=== PATIENT | female | born 1940 | race Caucasian/White ===

== ENCOUNTER 2017-10-13 23:23 | Inpatient (IN) | payer OTHER ==
[~2017-10-13] VITALS: Ht 152.4 cm; Wt 45.8 kg
[~2017-10-13 23:23] MED LIST: ALBUTEROL2.5 MG/3 M IH; AMOX1TAB12 PO; B Complex CAPSULE PO; DICLOFENAC SODI50 MG PO; FUROSEMIDE20 MG PO; ISOSORBIDE MONO30 MG PO; Intestinex CAP PO; JANUVIA25 MG; JANUVIA25 MG PO; LASIX40 MG; Neurin-Sl Tablet Sl SL; PANTOPRAZOLE SO40 MG PO; PEPCID20 MG; SLOW-MAG64 M1 PO; TOPROL XL25 M1 PO
[2017-10-19] MEDS ORDERED: XARELTO15 MG PO (12:07)
[2017-10-19] MEDS ORDERED: PANTOPRAZOLE SO40 MG PO (12:22)
[2017-10-19] MEDS ORDERED: TOPROL XL25 M1 PO (12:22)
[2017-10-19] MEDS ORDERED: ISOSORBIDE MONO30 MG PO (12:22)
[2017-10-19] MEDS ORDERED: Neurin-Sl Tablet Sl SL (12:22)
[2017-10-19] MEDS ORDERED: FUROSEMIDE20 MG PO (12:22)
[2017-10-19] MEDS ORDERED: B Complex CAPSULE PO (12:22)
[2017-10-19] MEDS ORDERED: JANUVIA25 MG PO (12:22)
[2017-10-19] MEDS ORDERED: ALBUTEROL2.5 MG/3 M IH (12:22)
== END 2017-10-19 13:29 | disposition home or self-care (01) | DRG 292 ==
LOC: ER 23:23 → ICU-2 10-14 20:16 → ICU 10-14 20:16 → MEDI 10-17 15:13
PROC: 3E0F7GC Introduction of Other Therapeutic Substance into Respiratory Tract, Via Natural or Artificial Opening (ICD-10-PCS; principal; 2017-10-14)
PROC: B246ZZZ Ultrasonography of Right and Left Heart (ICD-10-PCS; 2017-10-14)
PROC: 4A12X4Z Monitoring of Cardiac Electrical Activity, External Approach (ICD-10-PCS; 2017-10-17)
PROC: B54MZZZ Ultrasonography of Right Upper Extremity Veins (ICD-10-PCS; 2017-10-18)
DX: I11.0 Hypertensive heart disease with heart failure (principal); J90 Pleural effusion, not elsewhere classified; I47.2 Ventricular tachycardia; C92.41 Acute promyelocytic leukemia, in remission; I82.B11 Acute embolism and thrombosis of right subclavian vein; N39.0 Urinary tract infection, site not specified; I50.23 Acute on chronic systolic (congestive) heart failure; R60.1 Generalized edema; B18.2 Chronic viral hepatitis C; E11.9 Type 2 diabetes mellitus without complications; J45.998 Other asthma; I42.0 Dilated cardiomyopathy; E02 Subclinical iodine-deficiency hypothyroidism; D63.8 Anemia in other chronic diseases classified elsewhere; M81.0 Age-related osteoporosis without current pathological fracture; B95.2 Enterococcus as the cause of diseases classified elsewhere; I34.0 Nonrheumatic mitral (valve) insufficiency

== ENCOUNTER 2017-10-25 07:11 | Outpatient (CLI) | payer OTHER ==
[~2017-10-25 07:11] MED LIST changes: +XARELTO15 MG PO
== END 2017-10-25 07:15 | disposition home or self-care (01) ==
LOC: LAB 07:11
DX: E11.9 Type 2 diabetes mellitus without complications (principal); I10 Essential (primary) hypertension; E03.8 Other specified hypothyroidism; E78.2 Mixed hyperlipidemia

== ENCOUNTER 2018-01-02 07:48 | Outpatient (CLI) | payer OTHER | END 2018-01-02 08:08 | disposition home or self-care (01) | LOC: LAB 07:48 | DX: K76.89 Other specified diseases of liver (principal) ==

== ENCOUNTER 2018-01-02 07:59 | Outpatient (CLI) | payer OTHER | END 2018-01-02 08:07 | disposition home or self-care (01) | LOC: RAD 07:59 | DX: S69.92XA Unspecified injury of left wrist, hand and finger(s), initial encounter (principal) ==

== ENCOUNTER 2018-01-03 07:58 | Outpatient (CLI) | payer OTHER | END 2018-01-03 08:09 | disposition home or self-care (01) | LOC: NUCLEAR 07:58 | DX: R60.0 Localized edema (principal); I86.8 Varicose veins of other specified sites ==

== ENCOUNTER 2018-02-18 07:01 | Inpatient (IN) | payer OTHER ==
[~2018-02-18] VITALS: Ht 152.4 cm; Wt 45.4 kg
[2018-02-18] MEDS ORDERED: XARELTO20 MG (07:33)
[2018-02-18] MEDS ORDERED: CARVEDILOL3.125 MG (07:34)
[2018-02-18] MEDS ORDERED: LEVOTHYROXINE25 MCG (07:34)
== END 2018-02-28 08:16 | disposition home or self-care (01) | DRG 292 ==
LOC: ER 07:01 → SEC-K 17:15 → MEDJ 17:15
PROC: 4A033R1 Measurement of Arterial Saturation, Peripheral, Percutaneous Approach (ICD-10-PCS; 2018-02-18)
PROC: 3E0F7GC Introduction of Other Therapeutic Substance into Respiratory Tract, Via Natural or Artificial Opening (ICD-10-PCS; 2018-02-18)
PROC: B54MZZZ Ultrasonography of Right Upper Extremity Veins (ICD-10-PCS; 2018-02-18)
PROC: BW24ZZZ Computerized Tomography (CT Scan) of Chest and Abdomen (ICD-10-PCS; 2018-02-20)
PROC: 0W9G3ZX Drainage of Peritoneal Cavity, Percutaneous Approach, Diagnostic (ICD-10-PCS; principal; 2018-02-25)
PROC: BW40ZZZ Ultrasonography of Abdomen (ICD-10-PCS; 2018-02-25)
DX: I11.0 Hypertensive heart disease with heart failure (principal); J90 Pleural effusion, not elsewhere classified; C92.41 Acute promyelocytic leukemia, in remission; R18.8 Other ascites; B37.0 Candidal stomatitis; J45.41 Moderate persistent asthma with (acute) exacerbation; J98.11 Atelectasis; I50.23 Acute on chronic systolic (congestive) heart failure; B18.2 Chronic viral hepatitis C; K74.69 Other cirrhosis of liver; E02 Subclinical iodine-deficiency hypothyroidism; M81.0 Age-related osteoporosis without current pathological fracture; E11.65 Type 2 diabetes mellitus with hyperglycemia; D69.59 Other secondary thrombocytopenia; K80.80 Other cholelithiasis without obstruction

== ENCOUNTER 2018-06-11 07:39 | Outpatient (CLI) | payer OTHER ==
[~2018-06-11 07:39] MED LIST changes: +CARVEDILOL3.125 MG; +LEVOTHYROXINE25 MCG; +XARELTO20 MG
== END 2018-06-11 08:59 | disposition home or self-care (01) ==
LOC: LAB 07:39
DX: E11.9 Type 2 diabetes mellitus without complications (principal); I42.2 Other hypertrophic cardiomyopathy; I10 Essential (primary) hypertension

== ENCOUNTER 2018-06-11 09:19 | Outpatient (CLI) | payer OTHER | END 2018-06-11 09:46 | disposition home or self-care (01) | LOC: RAD 09:19 | DX: M25.512 Pain in left shoulder (principal) ==

== ENCOUNTER 2018-06-26 08:19 | Outpatient (CLI) | payer OTHER | END 2018-06-26 08:20 | disposition home or self-care (01) | LOC: LAB 08:19 | DX: E11.29 Type 2 diabetes mellitus with other diabetic kidney complication (principal); R80.8 Other proteinuria; N18.2 Chronic kidney disease, stage 2 (mild); E78.2 Mixed hyperlipidemia; E03.8 Other specified hypothyroidism; I10 Essential (primary) hypertension ==

== ENCOUNTER 2018-07-03 09:01 | Outpatient (CLI) | payer OTHER | END 2018-07-03 09:02 | disposition home or self-care (01) | LOC: SONOGRAMA 09:01 | DX: M75.52 Bursitis of left shoulder (principal) ==

== ENCOUNTER 2018-08-09 14:06 | Inpatient (IN) | payer OTHER ==
[~2018-08-09] VITALS: Ht 154.9 cm; Wt 37.6 kg
[2018-08-09] MEDS ORDERED: GRALISE600 MG (14:25)
[2018-08-09] MEDS ORDERED: SYNTHROID50 MCG (14:26)
== END 2018-08-24 18:00 | DRG 292 ==
LOC: ER 14:06 → SEC-K 18:47 → MEDI 18:47
PROC: 4A033R1 Measurement of Arterial Saturation, Peripheral, Percutaneous Approach (ICD-10-PCS; 2018-08-09)
PROC: 3E0F7GC Introduction of Other Therapeutic Substance into Respiratory Tract, Via Natural or Artificial Opening (ICD-10-PCS; 2018-08-09)
PROC: 4A12X4Z Monitoring of Cardiac Electrical Activity, External Approach (ICD-10-PCS; 2018-08-09)
PROC: 05H333Z Insertion of Infusion Device into Right Innominate Vein, Percutaneous Approach (ICD-10-PCS; 2018-08-12)
PROC: B54MZZZ Ultrasonography of Right Upper Extremity Veins (ICD-10-PCS; 2018-08-16)
PROC: 06HM33Z Insertion of Infusion Device into Right Femoral Vein, Percutaneous Approach (ICD-10-PCS; principal; 2018-08-17)
DX: I11.0 Hypertensive heart disease with heart failure (principal); C92.41 Acute promyelocytic leukemia, in remission; D62 Acute posthemorrhagic anemia; T81.41XA Infection following a procedure, superficial incisional surgical site, initial encounter; B37.0 Candidal stomatitis; J91.8 Pleural effusion in other conditions classified elsewhere; I82.621 Acute embolism and thrombosis of deep veins of right upper extremity; I82.A11 Acute embolism and thrombosis of right axillary vein; I82.B11 Acute embolism and thrombosis of right subclavian vein; L03.116 Cellulitis of left lower limb; I50.23 Acute on chronic systolic (congestive) heart failure; E03.8 Other specified hypothyroidism; B18.2 Chronic viral hepatitis C; E11.9 Type 2 diabetes mellitus without complications; J45.998 Other asthma; M81.0 Age-related osteoporosis without current pathological fracture; I42.0 Dilated cardiomyopathy; L89.152 Pressure ulcer of sacral region, stage 2; K74.69 Other cirrhosis of liver; Z95.810 Presence of automatic (implantable) cardiac defibrillator; B96.5 Pseudomonas (aeruginosa) (mallei) (pseudomallei) as the cause of diseases classified elsewhere; B95.2 Enterococcus as the cause of diseases classified elsewhere; E87.6 Hypokalemia

== ENCOUNTER 2018-08-31 12:57 | Inpatient (IN) | payer OTHER ==
[~2018-08-31] VITALS: Ht 152.4 cm; Wt 54.4 kg
[~2018-08-31 12:57] MED LIST changes: +GRALISE600 MG; +SYNTHROID50 MCG
== END 2018-09-06 11:43 | disposition home or self-care (01) | DRG 202 ==
LOC: ER 12:57 → SEC-K 21:39 → MEDJ 21:39
PROC: 3E0F7GC Introduction of Other Therapeutic Substance into Respiratory Tract, Via Natural or Artificial Opening (ICD-10-PCS; principal; 2018-08-31)
PROC: 4A12X4Z Monitoring of Cardiac Electrical Activity, External Approach (ICD-10-PCS; 2018-09-01)
DX: J45.41 Moderate persistent asthma with (acute) exacerbation (principal); I50.21 Acute systolic (congestive) heart failure; J90 Pleural effusion, not elsewhere classified; C91 Lymphoid leukemia; R18.8 Other ascites; I82.A21 Chronic embolism and thrombosis of right axillary vein; E11.9 Type 2 diabetes mellitus without complications; D64.89 Other specified anemias; K74.69 Other cirrhosis of liver; Z96.642 Presence of left artificial hip joint; Z95.810 Presence of automatic (implantable) cardiac defibrillator

== ENCOUNTER 2018-09-08 13:08 | Inpatient (IN) | payer OTHER ==
[~2018-09-08] VITALS: Ht 149.9 cm; Wt 37.6 kg
== END 2018-09-29 11:20 | disposition home or self-care (01) | DRG 371 ==
LOC: ER 13:08 → MEDJ 20:50 → MEDI 09-10 09:59 → MEDJ 09-11 11:49
PROC: 3E0F7GC Introduction of Other Therapeutic Substance into Respiratory Tract, Via Natural or Artificial Opening (ICD-10-PCS; principal; 2018-09-08)
PROC: 0W9G3ZX Drainage of Peritoneal Cavity, Percutaneous Approach, Diagnostic (ICD-10-PCS; 2018-09-12)
PROC: 06HM33Z Insertion of Infusion Device into Right Femoral Vein, Percutaneous Approach (ICD-10-PCS; 2018-09-16)
PROC: 30233R1 Transfusion of Nonautologous Platelets into Peripheral Vein, Percutaneous Approach (ICD-10-PCS; 2018-09-17)
DX: A04.71 Enterocolitis due to Clostridium difficile, recurrent (principal); I50.23 Acute on chronic systolic (congestive) heart failure; C92.41 Acute promyelocytic leukemia, in remission; J90 Pleural effusion, not elsewhere classified; I82.B11 Acute embolism and thrombosis of right subclavian vein; I82.621 Acute embolism and thrombosis of deep veins of right upper extremity; I82.A11 Acute embolism and thrombosis of right axillary vein; J45.51 Severe persistent asthma with (acute) exacerbation; B37.0 Candidal stomatitis; R18.8 Other ascites; K74.69 Other cirrhosis of liver; E11.9 Type 2 diabetes mellitus without complications; M81.8 Other osteoporosis without current pathological fracture; E03.8 Other specified hypothyroidism; D69.49 Other primary thrombocytopenia; I11.0 Hypertensive heart disease with heart failure

== ENCOUNTER 2018-10-27 22:26 | Inpatient (IN) | payer OTHER ==
[~2018-10-27] VITALS: Ht 152.4 cm; Wt 37.2 kg
[2018-10-27] MEDS ORDERED: SYNTHROID75 MCG PO (22:31)
[2018-11-03] MEDS ORDERED: SPIRONOLACTONE50 MG PO (12:16)
== END 2018-11-04 13:03 | disposition home or self-care (01) | DRG 292 ==
LOC: ER 22:26 → MEDJ 10-28 09:56
PROVIDERS: ADMIT Internal Medicine
PROC: BW24ZZZ Computerized Tomography (CT Scan) of Chest and Abdomen (ICD-10-PCS; principal; 2018-10-28)
PROC: 4A033R1 Measurement of Arterial Saturation, Peripheral, Percutaneous Approach (ICD-10-PCS; 2018-10-28)
PROC: 3E0F7GC Introduction of Other Therapeutic Substance into Respiratory Tract, Via Natural or Artificial Opening (ICD-10-PCS; 2018-10-28)
PROC: 0T9B70Z Drainage of Bladder with Drainage Device, Via Natural or Artificial Opening (ICD-10-PCS; 2018-10-28)
PROC: 0W9G30Z Drainage of Peritoneal Cavity with Drainage Device, Percutaneous Approach (ICD-10-PCS; 2018-11-01)
DX: I11.0 Hypertensive heart disease with heart failure (principal); I82.621 Acute embolism and thrombosis of deep veins of right upper extremity; I82.A11 Acute embolism and thrombosis of right axillary vein; B37.0 Candidal stomatitis; C92.41 Acute promyelocytic leukemia, in remission; R18.8 Other ascites; E87.3 Alkalosis; I50.23 Acute on chronic systolic (congestive) heart failure; I43 Cardiomyopathy in diseases classified elsewhere; K74.69 Other cirrhosis of liver; Z95.810 Presence of automatic (implantable) cardiac defibrillator; E03.9 Hypothyroidism, unspecified; Z79.4 Long term (current) use of insulin; D69.49 Other primary thrombocytopenia; Z86.19 Personal history of other infectious and parasitic diseases; E87.6 Hypokalemia; M81.0 Age-related osteoporosis without current pathological fracture; Z96.642 Presence of left artificial hip joint; E11.65 Type 2 diabetes mellitus with hyperglycemia; R74.0 Nonspecific elevation of levels of transaminase and lactic acid dehydrogenase [LDH]

== ENCOUNTER 2018-12-05 08:24 | Outpatient (CLI) | payer OTHER ==
[~2018-12-05 08:24] MED LIST changes: +SPIRONOLACTONE50 MG PO; +SYNTHROID75 MCG PO
== END 2018-12-05 08:48 | disposition home or self-care (01) ==
LOC: RAD 08:24
DX: M16.0 Bilateral primary osteoarthritis of hip (principal); M25.542 Pain in joints of left hand

== ENCOUNTER → 2019-01-24 | Outpatient (CLI) | payer OTHER ==
[~2019-01-24] MED LIST changes: +ALDACTONE50 MG; +ISOSORBIDE DINI30 MG; +LASIX20 MG; +LEVOTHYROXINE50 MCG; +MEDI-LYTE TABL1 EACH; +SLOW-MAG64 M1
== END | disposition home or self-care (01) ==
LOC: NUCLEAR 09:48
DX: M81.0 Age-related osteoporosis without current pathological fracture (principal)

== ENCOUNTER 2019-01-30 09:00 | Emergency (ER) | payer OTHER ==
[~2019-01-30] VITALS: Ht 149.9 cm; Wt 37.6 kg
[~2019-01-30 09:00] MED LIST changes: -ALDACTONE50 MG; -ISOSORBIDE DINI30 MG; -LASIX20 MG; -LEVOTHYROXINE50 MCG; -MEDI-LYTE TABL1 EACH; -SLOW-MAG64 M1
[2019-01-30] MEDS ORDERED: LEVOTHYROXINE50 MCG (09:55)
[2019-01-30] MEDS ORDERED: ALDACTONE50 MG (09:56)
[2019-01-30] MEDS ORDERED: ISOSORBIDE DINI30 MG (09:56)
[2019-01-30] MEDS ORDERED: CARVEDILOL3.125 MG (09:56)
[2019-01-30] MEDS ORDERED: LASIX20 MG (09:57)
[2019-01-30] MEDS ORDERED: SLOW-MAG64 M1 (09:57)
[2019-01-30] MEDS ORDERED: MEDI-LYTE TABL1 EACH (09:58)
== END 2019-01-30 14:44 | disposition home or self-care (01) ==
LOC: ER 09:00
DX: K21.9 Gastro-esophageal reflux disease without esophagitis (principal); M79.18 Myalgia, other site

== ENCOUNTER 2019-05-13 09:51 | Outpatient (CLI) | payer OTHER ==
[~2019-05-13 09:51] MED LIST changes: +ALDACTONE50 MG; +ISOSORBIDE DINI30 MG; +LASIX20 MG; +LEVOTHYROXINE50 MCG; +MEDI-LYTE TABL1 EACH; +SLOW-MAG64 M1
== END 2019-05-13 10:01 | disposition home or self-care (01) ==
LOC: RAD 09:51
DX: I42.8 Other cardiomyopathies (principal)

== ENCOUNTER → 2019-05-13 10:44 | Outpatient (CLI) | payer OTHER | END | disposition home or self-care (01) | LOC: LAB 10:44 | DX: E42 Marasmic kwashiorkor (principal) ==

== ENCOUNTER 2019-05-29 10:28 | Outpatient (CLI) | payer OTHER | END 2019-05-29 15:47 | disposition home or self-care (01) | LOC: LAB 10:28 | DX: K72.90 Hepatic failure, unspecified without coma (principal) ==

== ENCOUNTER 2019-06-08 07:30 | Emergency (ER) | payer OTHER ==
[~2019-06-08] VITALS: Ht 152.4 cm; Wt 40.4 kg
[2019-06-08] MEDS ORDERED: VITAMIN B-150 MG (07:46)
[2019-06-08] MEDS ORDERED: FOLIC ACID1 MG (07:46)
[2019-06-08] MEDS ORDERED: ALDACTONE50 MG (07:46)
[2019-06-08] MEDS ORDERED: VITAMIN B-12100 MCG (07:47)
== END 2019-06-08 11:24 | disposition home or self-care (01) ==
LOC: ER 07:30
DX: I11.0 Hypertensive heart disease with heart failure (principal); I50.9 Heart failure, unspecified; K74.69 Other cirrhosis of liver; B19.20 Unspecified viral hepatitis C without hepatic coma; R06.02 Shortness of breath; Z95.0 Presence of cardiac pacemaker

== ENCOUNTER 2019-06-11 08:35 | Inpatient (IN) | payer OTHER ==
[~2019-06-11] VITALS: Ht 147.3 cm; Wt 40.4 kg
[~2019-06-11 08:35] MED LIST changes: +FOLIC ACID1 MG; +VITAMIN B-12100 MCG; +VITAMIN B-150 MG
[2019-06-19] MEDS ORDERED: SYNTHROID75 MCG PO (03:48)
[2019-06-19] MEDS ORDERED: CARVEDILOL3.125 MG PO (03:48)
[2019-06-19] MEDS ORDERED: LASIX20 MG PO (03:48)
[2019-06-19] MEDS ORDERED: ISOSORBIDE DINI30 MG PO (03:49)
[2019-06-19] MEDS ORDERED: B COMPLEX WITH1 EACH PO (03:49)
[2019-06-19] MEDS ORDERED: GLYCOTROL CAPS1 EACH PO (03:49)
[2019-06-19] MEDS ORDERED: SLOW-MAG64 M1 PO (03:49)
== END 2019-06-18 09:21 | disposition home or self-care (01) | DRG 292 ==
LOC: ER 08:35 → MEDJ 17:01
PROVIDERS: ADMIT Internal Medicine
PROC: 4A12X4Z Monitoring of Cardiac Electrical Activity, External Approach (ICD-10-PCS; 2019-06-11)
PROC: 0W9G30Z Drainage of Peritoneal Cavity with Drainage Device, Percutaneous Approach (ICD-10-PCS; principal; 2019-06-12)
PROC: 0T9B70Z Drainage of Bladder with Drainage Device, Via Natural or Artificial Opening (ICD-10-PCS; 2019-06-13)
PROC: BW2FZZZ Computerized Tomography (CT Scan) of Neck (ICD-10-PCS; 2019-06-15)
DX: I11.0 Hypertensive heart disease with heart failure (principal); J90 Pleural effusion, not elsewhere classified; C92.40 Acute promyelocytic leukemia, not having achieved remission; I50.814 Right heart failure due to left heart failure; K76.1 Chronic passive congestion of liver; E03.8 Other specified hypothyroidism; E11.9 Type 2 diabetes mellitus without complications; E86.0 Dehydration; R91.1 Solitary pulmonary nodule; E87.8 Other disorders of electrolyte and fluid balance, not elsewhere classified; R63.0 Anorexia; R33.8 Other retention of urine; Z95.810 Presence of automatic (implantable) cardiac defibrillator; Z79.4 Long term (current) use of insulin

== ENCOUNTER 2019-06-19 03:41 | Emergency (ER) | payer OTHER ==
[~2019-06-19] VITALS: Ht 152.4 cm; Wt 53.1 kg
[2019-06-19] MEDS ORDERED: LASIX20 MG PO (03:48)
[2019-06-19] MEDS ORDERED: CARVEDILOL3.125 MG PO (03:48)
[2019-06-19] MEDS ORDERED: SYNTHROID75 MCG PO (03:48)
[2019-06-19] MEDS ORDERED: SLOW-MAG64 M1 PO (03:49)
[2019-06-19] MEDS ORDERED: ISOSORBIDE DINI30 MG PO (03:49)
[2019-06-19] MEDS ORDERED: B COMPLEX WITH1 EACH PO (03:49)
[2019-06-19] MEDS ORDERED: GLYCOTROL CAPS1 EACH PO (03:49)
== END 2019-06-19 14:29 | disposition home or self-care (01) ==
LOC: ER 03:41
DX: K80.80 Other cholelithiasis without obstruction (principal); R18.8 Other ascites; K76.89 Other specified diseases of liver; K74.69 Other cirrhosis of liver; B19.20 Unspecified viral hepatitis C without hepatic coma; E11.9 Type 2 diabetes mellitus without complications; R10.815 Periumbilic abdominal tenderness

== ENCOUNTER 2019-09-29 07:07 | Outpatient (CLI) | payer OTHER ==
[~2019-09-29 07:07] MED LIST changes: +B COMPLEX WITH1 EACH PO; +CARVEDILOL3.125 MG PO; +GLYCOTROL CAPS1 EACH PO; +ISOSORBIDE DINI30 MG PO; +LASIX20 MG PO
== END 2019-09-29 07:13 | disposition home or self-care (01) ==
LOC: LAB 07:07
DX: R18.8 Other ascites (principal); K74.69 Other cirrhosis of liver; D68.8 Other specified coagulation defects

== ENCOUNTER 2019-11-18 08:15 | Outpatient (CLI) | payer OTHER | END 2019-11-18 15:00 | disposition home or self-care (01) | LOC: LAB 08:15 | DX: E11.29 Type 2 diabetes mellitus with other diabetic kidney complication (principal); E03.8 Other specified hypothyroidism; I10 Essential (primary) hypertension; E78.00 Pure hypercholesterolemia, unspecified; D64.89 Other specified anemias ==

== ENCOUNTER → 2020-03-22 07:28 | Outpatient (CLI) | payer OTHER | END | disposition home or self-care (01) | LOC: LAB 07:28 | PROVIDERS: ATTEND Internal Medicine | DX: E11.29 Type 2 diabetes mellitus with other diabetic kidney complication (principal); R80.8 Other proteinuria; E78.00 Pure hypercholesterolemia, unspecified; I10 Essential (primary) hypertension; E03.8 Other specified hypothyroidism ==

== ENCOUNTER → 2020-04-13 07:51 | Outpatient (CLI) | payer OTHER | END | disposition home or self-care (01) | LOC: LAB 07:51 | PROVIDERS: ATTEND Internal Medicine Gastroenterology | DX: R18.8 Other ascites (principal); K74.69 Other cirrhosis of liver ==

== ENCOUNTER → 2020-06-22 08:52 | Outpatient (CLI) | payer OTHER | END | disposition home or self-care (01) | LOC: LAB 08:52 | PROVIDERS: ATTEND Internal Medicine | DX: D64.89 Other specified anemias (principal); E11.42 Type 2 diabetes mellitus with diabetic polyneuropathy; E78.49 Other hyperlipidemia; E03.8 Other specified hypothyroidism ==

== ENCOUNTER 2020-09-24 07:40 | Outpatient (CLI) | payer OTHER | END 2020-09-24 07:55 | disposition home or self-care (01) | LOC: LAB 07:40 | PROVIDERS: ATTEND Internal Medicine | DX: I10 Essential (primary) hypertension (principal); D69.8 Other specified hemorrhagic conditions; E11.22 Type 2 diabetes mellitus with diabetic chronic kidney disease; E03.8 Other specified hypothyroidism ==

== ENCOUNTER 2020-11-19 14:39 | Emergency (ER) | payer OTHER ==
[~2020-11-19] VITALS: Ht 152.4 cm; Wt 38.6 kg
[2020-11-19] MEDS ORDERED: PROTONIX40 MG PO (14:57)
[2020-11-19] MEDS ORDERED: ALDACTONE25 MG PO (14:57)
[2020-11-19] MEDS ORDERED: CALTRATE 600+D1 EAC1 PO (14:57)
[2020-11-19] MEDS ORDERED: FOLIC ACID0.8 M1 PO (14:57)
[2020-11-19] MEDS ORDERED: ZOFRAN8 MG PO (19:23)
== END 2020-11-19 20:06 | disposition home or self-care (01) ==
LOC: ER 14:39
DX: R18.8 Other ascites (principal); K76.89 Other specified diseases of liver; K80.80 Other cholelithiasis without obstruction; J90 Pleural effusion, not elsewhere classified; I51.7 Cardiomegaly; Z03.818 Encounter for observation for suspected exposure to other biological agents ruled out

== ENCOUNTER 2021-01-13 20:30 | Inpatient (IN) | payer OTHER ==
[~2021-01-13] VITALS: Ht 152.4 cm; Wt 49.0 kg
[~2021-01-13 20:30] MED LIST changes: +ALDACTONE25 MG PO; +CALTRATE 600+D1 EAC1 PO; +FOLIC ACID0.8 M1 PO; +PROTONIX40 MG PO; +ZOFRAN8 MG PO
[2021-01-13] MEDS ORDERED: SYNTHROID100 MCG PO (21:06)
[2021-01-13] MEDS ORDERED: ISOSORBIDE MONO60 MG PO (21:07)
[2021-01-13] MEDS ORDERED: LASIX20 MG PO (21:07)
[2021-01-17] MEDS ORDERED: LORAZEPAM0.5 MG (14:08)
[2021-01-17] MEDS ORDERED: SYMBICORT 16010.2 GM (14:08)
[2021-01-17] MEDS ORDERED: VITAMIN C1000 MG (14:09)
[2021-01-17] MEDS ORDERED: GABAPENTIN300 M2 (14:09)
[2021-01-17] MEDS ORDERED: SYNTHROID75 MCG (14:09)
[2021-01-17] MEDS ORDERED: VITAMIN B-121000 MCG (14:09)
[2021-01-17] MEDS ORDERED: ALENDRONATE SOD70 MG (14:09)
== END 2021-01-18 08:22 | disposition home or self-care (01) | DRG 292 ==
LOC: ER 20:30 → MEDJ 01-14 08:32 → SEC-K 01-14 08:32 → MEDI 01-14 15:42
PROVIDERS: ADMIT Internal Medicine; ATTEND Internal Medicine
PROC: 4A12X4Z Monitoring of Cardiac Electrical Activity, External Approach (ICD-10-PCS; 2021-01-14)
PROC: B24BYZZ Ultrasonography of Heart with Aorta using Other Contrast (ICD-10-PCS; 2021-01-14)
PROC: BW21ZZZ Computerized Tomography (CT Scan) of Abdomen and Pelvis (ICD-10-PCS; 2021-01-14)
PROC: 0W9G3ZZ Drainage of Peritoneal Cavity, Percutaneous Approach (ICD-10-PCS; principal; 2021-01-15)
DX: I11.0 Hypertensive heart disease with heart failure (principal); R18.8 Other ascites; I50.23 Acute on chronic systolic (congestive) heart failure; I43 Cardiomyopathy in diseases classified elsewhere; K76.9 Liver disease, unspecified; E11.9 Type 2 diabetes mellitus without complications; Z79.84 Long term (current) use of oral hypoglycemic drugs; Z95.810 Presence of automatic (implantable) cardiac defibrillator; Z20.822 Contact with and (suspected) exposure to COVID-19

== ENCOUNTER → 2021-07-13 08:14 | Outpatient (CLI) | payer OTHER ==
[~2021-07-13 08:14] MED LIST changes: +ALENDRONATE SOD70 MG; +GABAPENTIN300 M2; +ISOSORBIDE MONO60 MG PO; +LORAZEPAM0.5 MG; +SYMBICORT 16010.2 GM; +SYNTHROID100 MCG PO; +SYNTHROID75 MCG; +VITAMIN B-121000 MCG; +VITAMIN C1000 MG
== END | disposition home or self-care (01) ==
LOC: LAB 08:14
PROVIDERS: ATTEND Internal Medicine
DX: E03.8 Other specified hypothyroidism (principal); E11.22 Type 2 diabetes mellitus with diabetic chronic kidney disease; E78.49 Other hyperlipidemia; D64.89 Other specified anemias; K21.9 Gastro-esophageal reflux disease without esophagitis; K74.69 Other cirrhosis of liver; R18.8 Other ascites; K59.01 Slow transit constipation

== ENCOUNTER 2021-07-21 12:49 | Outpatient (CLI) | payer OTHER | END 2021-07-21 12:50 | disposition home or self-care (01) | LOC: NUCLEAR 12:49 | PROVIDERS: ATTEND Internal Medicine | DX: M81.0 Age-related osteoporosis without current pathological fracture (principal) ==

== ENCOUNTER 2021-08-01 07:10 | Outpatient (CLI) | payer OTHER | END 2021-08-01 07:11 | disposition home or self-care (01) | LOC: SONOGRAMA 07:10 → MAMO-SONO 09:45 | PROVIDERS: ATTEND Internal Medicine | DX: K74.69 Other cirrhosis of liver (principal); K80.80 Other cholelithiasis without obstruction; R18.8 Other ascites ==

== ENCOUNTER → 2021-08-01 08:18 | Outpatient (CLI) | payer OTHER | END | disposition home or self-care (01) | LOC: LAB 08:18 | PROVIDERS: ATTEND Internal Medicine | DX: E03.8 Other specified hypothyroidism (principal); K74.69 Other cirrhosis of liver; I10 Essential (primary) hypertension; E11.42 Type 2 diabetes mellitus with diabetic polyneuropathy; D69.6 Thrombocytopenia, unspecified; E78.49 Other hyperlipidemia; D68.8 Other specified coagulation defects ==

== ENCOUNTER 2021-10-25 07:48 | Outpatient (CLI) | payer OTHER | END 2021-10-25 07:49 | disposition home or self-care (01) | LOC: LAB 07:48 | PROVIDERS: ATTEND Internal Medicine | DX: D64.89 Other specified anemias (principal); E11.42 Type 2 diabetes mellitus with diabetic polyneuropathy; I10 Essential (primary) hypertension; E78.49 Other hyperlipidemia ==

== ENCOUNTER 2021-12-07 08:56 | Outpatient (CLI) | payer OTHER | END 2021-12-07 09:11 | disposition home or self-care (01) | LOC: RAD 08:56 | PROVIDERS: ATTEND Orthopaedic Surgery | DX: M25.552 Pain in left hip (principal); M25.532 Pain in left wrist ==

== ENCOUNTER 2021-12-14 07:45 | Outpatient (CLI) | payer OTHER | END 2021-12-14 07:46 | disposition home or self-care (01) | LOC: LAB 07:45 | PROVIDERS: ATTEND Orthopaedic Surgery | DX: E83.42 Hypomagnesemia (principal); E56.1 Deficiency of vitamin K; E88.9 Metabolic disorder, unspecified; M81.8 Other osteoporosis without current pathological fracture ==

== ENCOUNTER 2021-12-14 08:24 | Outpatient (CLI) | payer OTHER | END 2021-12-14 08:33 | disposition home or self-care (01) | LOC: RAD 08:24 | PROVIDERS: ATTEND Orthopaedic Surgery | DX: M54.50 Low back pain, unspecified (principal) ==

== ENCOUNTER 2021-12-20 11:42 | Outpatient (CLI) | payer OTHER | END 2021-12-20 11:43 | disposition home or self-care (01) | LOC: LAB 11:42 | PROVIDERS: ATTEND Internal Medicine | DX: D69.6 Thrombocytopenia, unspecified (principal); D68.9 Coagulation defect, unspecified ==

== ENCOUNTER 2022-02-11 08:19 | Emergency (ER) | payer OTHER ==
[~2022-02-11] VITALS: Ht 152.4 cm; Wt 38.6 kg
== END 2022-02-11 23:17 | disposition home or self-care (01) ==
LOC: ER 08:19
DX: K74.69 Other cirrhosis of liver (principal); I42.9 Cardiomyopathy, unspecified; Z20.822 Contact with and (suspected) exposure to COVID-19; K80.20 Calculus of gallbladder without cholecystitis without obstruction

== ENCOUNTER → 2022-02-14 10:19 | Outpatient (CLI) | payer OTHER | END | disposition home or self-care (01) | LOC: NUCLEAR 10:19 | PROVIDERS: ATTEND Orthopaedic Surgery | DX: E21.0 Primary hyperparathyroidism (principal); M81.0 Age-related osteoporosis without current pathological fracture | CPT/HCPCS: 78071; A9500 ==

== ENCOUNTER 2022-02-16 10:34 | Inpatient (IN) | payer OTHER ==
[~2022-02-16] VITALS: Ht 149.9 cm; Wt 38.6 kg
== END 2022-02-21 07:21 | disposition home or self-care (01) | DRG 433 ==
LOC: ER 10:34 → MEDI 22:51
PROVIDERS: ADMIT Internal Medicine; ATTEND Internal Medicine
PROC: 0W9G3ZZ Drainage of Peritoneal Cavity, Percutaneous Approach (ICD-10-PCS; principal; 2022-02-17)
DX: K74.69 Other cirrhosis of liver (principal); R18.8 Other ascites; I42.9 Cardiomyopathy, unspecified; B18.2 Chronic viral hepatitis C; K21.9 Gastro-esophageal reflux disease without esophagitis; E11.9 Type 2 diabetes mellitus without complications; Z20.822 Contact with and (suspected) exposure to COVID-19; I51.7 Cardiomegaly; Z79.4 Long term (current) use of insulin

== ENCOUNTER 2022-03-02 07:11 | Outpatient (CLI) | payer OTHER | END 2022-03-02 07:12 | disposition home or self-care (01) | LOC: LAB 07:11 | PROVIDERS: ATTEND Internal Medicine | DX: E11.42 Type 2 diabetes mellitus with diabetic polyneuropathy (principal); I10 Essential (primary) hypertension; E78.5 Hyperlipidemia, unspecified; E03.9 Hypothyroidism, unspecified ==

== ENCOUNTER 2022-04-26 07:35 | Emergency (ER) | payer OTHER ==
[~2022-04-26] VITALS: Ht 149.9 cm; Wt 40.4 kg
== END 2022-04-26 13:19 | disposition home or self-care (01) ==
LOC: ER 07:35
DX: K56.41 Fecal impaction (principal); R18.8 Other ascites; Z88.6 Allergy status to analgesic agent; E07.9 Disorder of thyroid, unspecified; I25.2 Old myocardial infarction; K75.9 Inflammatory liver disease, unspecified; Z95.810 Presence of automatic (implantable) cardiac defibrillator; I11.0 Hypertensive heart disease with heart failure; I50.9 Heart failure, unspecified

== ENCOUNTER 2022-04-29 07:28 | Inpatient (IN) | payer OTHER ==
[~2022-04-29] VITALS: Ht 149.9 cm; Wt 39.5 kg
== END 2022-05-11 17:09 | disposition home or self-care (01) | DRG 432 ==
LOC: ER 07:28 → SURG 19:39 → MEDJ 05-02 11:16
PROVIDERS: ADMIT Internal Medicine; ATTEND Internal Medicine
PROC: B24BZZZ Ultrasonography of Heart with Aorta (ICD-10-PCS; 2022-05-02)
PROC: 0W9G3ZZ Drainage of Peritoneal Cavity, Percutaneous Approach (ICD-10-PCS; principal; 2022-05-05)
DX: K74.69 Other cirrhosis of liver (principal); K65.2 Spontaneous bacterial peritonitis; R78.81 Bacteremia; R18.8 Other ascites; I43 Cardiomyopathy in diseases classified elsewhere; I50.1 Left ventricular failure, unspecified; I13.0 Hypertensive heart and chronic kidney disease with heart failure and stage 1 through stage 4 chronic kidney disease, or unspecified chronic kidney disease; E87.5 Hyperkalemia; R06.02 Shortness of breath; B96.1 Klebsiella pneumoniae [K. pneumoniae] as the cause of diseases classified elsewhere; I11.0 Hypertensive heart disease with heart failure; Z79.4 Long term (current) use of insulin; Z20.822 Contact with and (suspected) exposure to COVID-19; E11.22 Type 2 diabetes mellitus with diabetic chronic kidney disease; N18.30 Chronic kidney disease, stage 3 unspecified

== ENCOUNTER 2022-05-24 08:47 | Outpatient (CLI) | payer OTHER | END 2022-05-24 08:52 | disposition home or self-care (01) | LOC: RAD 08:47 | PROVIDERS: ATTEND Orthopaedic Surgery | DX: M25.511 Pain in right shoulder (principal) ==

== ENCOUNTER 2022-06-05 07:28 | Outpatient (CLI) | payer OTHER | END 2022-06-05 07:35 | disposition home or self-care (01) | LOC: LAB 07:28 | PROVIDERS: ATTEND Internal Medicine | DX: E11.22 Type 2 diabetes mellitus with diabetic chronic kidney disease (principal); I11.0 Hypertensive heart disease with heart failure; E78.5 Hyperlipidemia, unspecified; R74.01 Elevation of levels of liver transaminase levels; N18.31 Chronic kidney disease, stage 3a ==

== ENCOUNTER → 2022-08-02 07:16 | Outpatient (CLI) | payer OTHER | END | disposition home or self-care (01) | LOC: NUCLEAR 07-19 07:00 | PROVIDERS: ATTEND Orthopaedic Surgery | DX: E21.0 Primary hyperparathyroidism (principal) | CPT/HCPCS: 78071; A9500 ==

== ENCOUNTER 2022-08-09 08:10 | Inpatient (IN) | payer OTHER ==
[~2022-08-09] VITALS: Ht 149.9 cm; Wt 52.2 kg
--- NOTE | 2022-08-09 08:51 | NUR ---
SE RECIUIBE PTE ALERTA Y ORIETNADA X3 CUAL REFIERE QUE ESTA ACUMULANDO LIQUIDOS EN MÁRQUEZ ABDOMEN. AREA SE OBSERVA DISTENDIDO TY REFIRE DOLOR AL TACTO. SE AQUILINO S.V Y SE UBICA. PTE CON HX FALLO CARDIACO. PTE DE TABATHA.NYDIA KLEIN OCAMPO
--- NOTE | 2022-08-09 09:32 | NUR ---
SE LE ORIENTA A PACIENTE SOBRE LAS ORDENES MEDICAS, REFIERE ENTEDER LAS MISMAS. SE CANALIZA Y SE LE COLOCA LOS IVF'S, SE LE ADMINISTRA LOS MEDICAMENTOS MAIDA LAS ORDENES MEDICAS.
--- NOTE | 2022-08-09 11:15 | NUR ---
SE LE ORIENTA SOBRE LAS ORDENES MEDICAS, REFIERE ENTEDER LAS MISMAS. SE LE AQUILINO LAS MUETRAS MAIDA LAS ORDENES MEDICAS.
== END 2022-08-12 11:02 | disposition home or self-care (01) | DRG 433 ==
LOC: ER 08:10 → SEC-K 19:26 → MEDI 19:26
PROVIDERS: ADMIT Internal Medicine; ATTEND Internal Medicine
PROC: 0W9G3ZZ Drainage of Peritoneal Cavity, Percutaneous Approach (ICD-10-PCS; principal; 2022-08-10)
PROC: 02HV33Z Insertion of Infusion Device into Superior Vena Cava, Percutaneous Approach (ICD-10-PCS; 2022-08-10)
PROC: 4A12X4Z Monitoring of Cardiac Electrical Activity, External Approach (ICD-10-PCS; 2022-08-10)
DX: K74.69 Other cirrhosis of liver (principal); E87.1 Hypo-osmolality and hyponatremia; B19.20 Unspecified viral hepatitis C without hepatic coma; K72.90 Hepatic failure, unspecified without coma; N18.31 Chronic kidney disease, stage 3a; E11.9 Type 2 diabetes mellitus without complications; I51.7 Cardiomegaly; E87.5 Hyperkalemia; I50.9 Heart failure, unspecified; Z20.822 Contact with and (suspected) exposure to COVID-19

== ENCOUNTER 2022-09-19 07:45 | Outpatient (CLI) | payer OTHER | END 2022-09-19 08:12 | disposition home or self-care (01) | LOC: LAB 07:45 | PROVIDERS: ATTEND Internal Medicine | DX: E11.22 Type 2 diabetes mellitus with diabetic chronic kidney disease (principal); N18.31 Chronic kidney disease, stage 3a; E78.00 Pure hypercholesterolemia, unspecified; E03.9 Hypothyroidism, unspecified; D64.9 Anemia, unspecified ==

== ENCOUNTER 2022-10-04 03:55 | Inpatient (IN) | payer OTHER ==
[~2022-10-04] VITALS: Ht 149.9 cm; Wt 40.8 kg
[2022-10-04] MEDS ORDERED: ISOSORBIDE MONO60 MG (04:05)
[2022-10-04] MEDS ORDERED: LASIX20 MG (04:05)
[2022-10-04] MEDS ORDERED: ALDACTONE25 MG (04:05)
--- NOTE | 2022-10-04 04:17 | NUR ---
PACIENTE ALERTA Y ORIENTADA X3. PACIENTE VIENE POR DOLOR ABDOMINAL Y EN BRAZO DERECHO. RETENCION DE LIQUIDO DESDE EL SABADO. PACIENTE CON ASCITE ABDOMINAL.
--- NOTE | 2022-10-04 04:47 | NUR ---
PACIENTE EVALUADA POR DR NAN BETTENCOURT [place] MEDICO, ARMEN VILCHIS Y ARMEN CLIFFORD LE ORIENTAN A PACIENTE SOBRE TX Y VERBALIZA ENTENDER, LE COLECTAN MUESTRAS D LABORATORIO Y LE CANALIZAN BAJO MEDIDAS ASEPTICAS. AREA DE VENOPUNCION PATENTE, CHRISTINE DE EDEMA Y ERITEMA. SE NOTFICA ESTUDIO DE WALLY X A MR RODRIGUEZ.
--- NOTE | 2022-10-04 07:24 | NUR ---
SE RECIBE PTE FEMENINA DE 82 YRS ALERTA CONCIENTE Y TRANQUILA EN COMPANIA DE FAMILIAR. PTE SE OBSERVA CON FOLIE CATHETE Y H/L, SE MANTIENE BAJO OBSERVACION POR CAMBIOS , PTE AL MOMENTO CHRISTINE DE DOLOR, PTE CONSULTADA CON LA , NYDIA KLEIN MEDICO INTERNISTA.
== END 2022-10-05 17:17 | DRG 292 ==
LOC: ER 03:55 → SEC-K 10:06 → MEDI 10-05 14:16
PROVIDERS: ADMIT Internal Medicine; ATTEND Internal Medicine
PROC: 4A12X4Z Monitoring of Cardiac Electrical Activity, External Approach (ICD-10-PCS; principal; 2022-10-04)
PROC: 0W9G3ZZ Drainage of Peritoneal Cavity, Percutaneous Approach (ICD-10-PCS; 2022-10-04)
DX: I13.0 Hypertensive heart and chronic kidney disease with heart failure and stage 1 through stage 4 chronic kidney disease, or unspecified chronic kidney disease (principal); C92.41 Acute promyelocytic leukemia, in remission; R18.8 Other ascites; I50.9 Heart failure, unspecified; N18.31 Chronic kidney disease, stage 3a; Z95.810 Presence of automatic (implantable) cardiac defibrillator; E11.22 Type 2 diabetes mellitus with diabetic chronic kidney disease; Z20.822 Contact with and (suspected) exposure to COVID-19; K74.60 Unspecified cirrhosis of liver; I42.8 Other cardiomyopathies

== ENCOUNTER 2022-11-04 08:04 | Inpatient (IN) | payer OTHER ==
[~2022-11-04] VITALS: Ht 149.9 cm; Wt 42.6 kg
[~2022-11-04 08:04] MED LIST changes: +ALDACTONE25 MG; +ISOSORBIDE MONO60 MG
[2022-11-06] MEDS ORDERED: LYSIPLEX PLUS178 ML (11:00)
== END 2022-11-10 11:10 | disposition home or self-care (01) | DRG 948 ==
LOC: ER 08:04 → SEC-K 15:14 → MEDJ 15:14
PROVIDERS: ADMIT Internal Medicine; ATTEND Internal Medicine
PROC: 4A12X4Z Monitoring of Cardiac Electrical Activity, External Approach (ICD-10-PCS; 2022-11-04)
PROC: 3E0F7GC Introduction of Other Therapeutic Substance into Respiratory Tract, Via Natural or Artificial Opening (ICD-10-PCS; 2022-11-07)
PROC: 0W9G3ZZ Drainage of Peritoneal Cavity, Percutaneous Approach (ICD-10-PCS; principal; 2022-11-08)
DX: R18.8 Other ascites (principal); I42.9 Cardiomyopathy, unspecified; N39.0 Urinary tract infection, site not specified; J45.901 Unspecified asthma with (acute) exacerbation; C92.41 Acute promyelocytic leukemia, in remission; K74.69 Other cirrhosis of liver; B19.20 Unspecified viral hepatitis C without hepatic coma; B96.4 Proteus (mirabilis) (morganii) as the cause of diseases classified elsewhere; E11.9 Type 2 diabetes mellitus without complications; Z79.4 Long term (current) use of insulin; Z95.810 Presence of automatic (implantable) cardiac defibrillator

== ENCOUNTER 2022-11-15 14:17 | Inpatient (IN) | payer OTHER ==
[~2022-11-15] VITALS: Ht 121.9 cm; Wt 42.6 kg
[~2022-11-15 14:17] MED LIST changes: +LYSIPLEX PLUS178 ML
== END 2022-11-23 20:07 | disposition home or self-care (01) | DRG 280 ==
LOC: ER 14:17 → ICU-2 21:12 → ICU 11-17 14:49 → MEDI 11-19 15:13
PROVIDERS: ADMIT Internal Medicine; ATTEND Internal Medicine
PROC: BW21ZZZ Computerized Tomography (CT Scan) of Abdomen and Pelvis (ICD-10-PCS; 2022-11-16)
PROC: 4A12X4Z Monitoring of Cardiac Electrical Activity, External Approach (ICD-10-PCS; principal; 2022-11-19)
DX: I13.0 Hypertensive heart and chronic kidney disease with heart failure and stage 1 through stage 4 chronic kidney disease, or unspecified chronic kidney disease (principal); I21.A1 Myocardial infarction type 2; K65.2 Spontaneous bacterial peritonitis; I50.9 Heart failure, unspecified; K42.9 Umbilical hernia without obstruction or gangrene; K76.82 Hepatic encephalopathy; E87.5 Hyperkalemia; Z20.822 Contact with and (suspected) exposure to COVID-19; Z79.4 Long term (current) use of insulin; K74.69 Other cirrhosis of liver; E03.9 Hypothyroidism, unspecified; K21.9 Gastro-esophageal reflux disease without esophagitis; E11.22 Type 2 diabetes mellitus with diabetic chronic kidney disease; N18.30 Chronic kidney disease, stage 3 unspecified; B19.20 Unspecified viral hepatitis C without hepatic coma

== ENCOUNTER → 2022-12-07 | Outpatient (CLI) | payer OTHER | END | disposition home or self-care (01) | LOC: NUCLEAR 12:49 | PROVIDERS: ATTEND Orthopaedic Surgery | DX: M81.0 Age-related osteoporosis without current pathological fracture (principal) ==

== ENCOUNTER 2022-12-09 08:06 | Inpatient (IN) | payer OTHER ==
[~2022-12-09] VITALS: Ht 147.3 cm; Wt 40.8 kg
--- NOTE | 2022-12-09 08:17 | NUR ---
PACIENTE ALERTA Y ORIENTADA POR NESTOR, ACOMPANADA DE ESPOSO. JEREMY REFIERE ESTA NO COMIO AGUSTIN Y SE PASA DURMIENDO MUCHO HACEN 3 BRIGGS.
--- NOTE | 2022-12-09 10:21 | NUR ---
SE ORIENTA PTE SOBRE TX A SEGUIR, EL CUAL REFIERE ENTENDER. SE COLECTAN MUESTRAS Y SE CANALIZA PTE UTILIZANDO MEDIDAS ASEPTICAS. SE HACE ENTREGA DE ENVASE PARA MUESTRA DE UA PEND
== END 2022-12-12 17:14 | disposition home or self-care (01) | DRG 948 ==
LOC: ER 08:06 → MEDI 18:37
PROVIDERS: ADMIT Internal Medicine; ATTEND Internal Medicine
PROC: 4A12X4Z Monitoring of Cardiac Electrical Activity, External Approach (ICD-10-PCS; 2022-12-09)
PROC: 3E0F7GC Introduction of Other Therapeutic Substance into Respiratory Tract, Via Natural or Artificial Opening (ICD-10-PCS; 2022-12-10)
PROC: 0W9G3ZZ Drainage of Peritoneal Cavity, Percutaneous Approach (ICD-10-PCS; principal; 2022-12-11)
PROC: B54MZZZ Ultrasonography of Right Upper Extremity Veins (ICD-10-PCS; 2022-12-11)
DX: R18.8 Other ascites (principal); C92.41 Acute promyelocytic leukemia, in remission; E87.1 Hypo-osmolality and hyponatremia; I42.0 Dilated cardiomyopathy; I50.9 Heart failure, unspecified; N18.9 Chronic kidney disease, unspecified; E11.22 Type 2 diabetes mellitus with diabetic chronic kidney disease; K74.69 Other cirrhosis of liver; B18.2 Chronic viral hepatitis C; J45.998 Other asthma; E03.9 Hypothyroidism, unspecified; Z95.0 Presence of cardiac pacemaker; Z79.4 Long term (current) use of insulin

== ENCOUNTER 2022-12-16 14:34 | Emergency (ER) | payer OTHER ==
[~2022-12-16] VITALS: Ht 162.6 cm; Wt 42.6 kg
== END 2022-12-16 21:40 | disposition home or self-care (01) ==
LOC: ER 14:34
DX: K76.82 Hepatic encephalopathy (principal); R53.1 Weakness; K74.60 Unspecified cirrhosis of liver; Z88.0 Allergy status to penicillin; Z88.6 Allergy status to analgesic agent; Z87.01 Personal history of pneumonia (recurrent); Z95.0 Presence of cardiac pacemaker

== ENCOUNTER 2023-01-01 08:02 | Inpatient (IN) | payer OTHER ==
[~2023-01-01] VITALS: Ht 147.3 cm; Wt 40.4 kg
--- NOTE | 2023-01-01 08:14 | NUR ---
SE RECIBE PTE ALERTA Y ORIENTADO X3 PTE REFIERE QUE ESTUVO EN LA OFICINA MEDICA DEL DR. BRENT CLEANING Y LE REFIRIO QUE VINIERA A LUKE COTY DE EMERGENCIAS CON REFERIDO EN MANO. PTE PADECE DEL CHRISTIANO ASISITIS Y CIROSIS HEPATICA. SE AQUILINO VITALES Y SE NAVEEN EN COTY DE ESPERA.
--- NOTE | 2023-01-01 09:08 | NUR ---
SE ORIENTA PTE SORBE EL TRATAMIENTO ORDENADO POR EL DR ANDREWS PTE ALERTA Y ORIENTADO POR 3 EN COMAPNAIA DE MÁRQUEZ FAMILIAR, SE REALIZAN MUESTRAS DE LABORTORIO Y SE ADMINISRAN MEDICAMENTOS MAIDA ORDENADO. PTE SE MANTIENE EN OBSERVACION Y BAJO TRATAMIENTO.
== END 2023-01-03 20:34 | disposition home or self-care (01) | DRG 433 ==
LOC: ER 08:02 → SEC-K 11:15 → MEDJ 11:15
PROVIDERS: ADMIT Internal Medicine; ATTEND Internal Medicine
PROC: 0W9G3ZZ Drainage of Peritoneal Cavity, Percutaneous Approach (ICD-10-PCS; principal; 2023-01-02)
DX: K74.69 Other cirrhosis of liver (principal); R18.8 Other ascites; I50.9 Heart failure, unspecified; E03.9 Hypothyroidism, unspecified; E11.22 Type 2 diabetes mellitus with diabetic chronic kidney disease; N18.9 Chronic kidney disease, unspecified; Z79.4 Long term (current) use of insulin

== ENCOUNTER 2023-03-13 07:30 | Outpatient (CLI) | payer OTHER | END 2023-03-13 07:31 | disposition home or self-care (01) | LOC: LAB 07:30 | PROVIDERS: ATTEND Orthopaedic Surgery | DX: M85.9 Disorder of bone density and structure, unspecified (principal); E83.42 Hypomagnesemia; E56.1 Deficiency of vitamin K; E88.89 Other specified metabolic disorders; M81.8 Other osteoporosis without current pathological fracture ==

== ENCOUNTER 2023-04-03 06:22 | Outpatient (CLI) | payer OTHER | END 2023-04-03 06:25 | disposition home or self-care (01) | LOC: LAB 06:22 | PROVIDERS: ATTEND Internal Medicine | DX: E11.22 Type 2 diabetes mellitus with diabetic chronic kidney disease (principal); N18.31 Chronic kidney disease, stage 3a; I11.0 Hypertensive heart disease with heart failure; E03.9 Hypothyroidism, unspecified; E78.5 Hyperlipidemia, unspecified; K74.69 Other cirrhosis of liver; D69.6 Thrombocytopenia, unspecified ==

== ENCOUNTER 2023-04-03 07:25 | Outpatient (CLI) | payer OTHER | END 2023-04-03 07:27 | disposition home or self-care (01) | LOC: RAD 07:25 | PROVIDERS: ATTEND Orthopaedic Surgery | DX: M54.6 Pain in thoracic spine (principal); M54.59 Other low back pain ==

== ENCOUNTER 2023-05-28 05:03 | Inpatient (IN) | payer OTHER ==
[~2023-05-28] VITALS: Ht 152.4 cm; Wt 40.8 kg
--- NOTE | 2023-05-28 06:17 | NUR ---
SE RECIBE PACIENTE VIA AMBULANCIA VITALINE A LAS 5:20 AM. PACIENTE ALERTA Y ORIENTADA X 3 CON RESPUESTA A ESTIMULOS. PATRON RESPIRATORIO IRREGULAR ABDOMINAL. REACCCION PUPILAR A 3 MM BILATERAL. PACIENTE CON CANALIZACION CON ANGIO #22 EN BRAZO [address] CHRISTINE DE EDEMA O ERITEMA. SE OBSERVA CON DISTENCION ABDOMINAL Y HERNIA EN AREA UMBILICAL. SE REALIZA ANSHUL DE SIGNOS VITALES Y PRESION ARTERIAL MANUAL LO CUAL OBTUVO 70/40 MMHG LA CUAL SE LE NOTIFICA DR [place]. SE ENTREGA A PTE A RN ISACC DE AREA DE CRITICO CONECTANDO A PTE A MONITOR CARDIACO Y OXIGENO. MONITOR CARDIACO CON ALARMAS PRESENTES Y AUDIBLES. PACIENTE ACOMPANADA DE MÁRQUEZ HIJO.
[2023-05-28] MEDS ORDERED: ALDACTONE25 MG PO (06:35)
[2023-05-28] MEDS ORDERED: ATIVAN1 M1 PO (06:36)
--- NOTE | 2023-05-28 06:41 | NUR ---
5:25AM: SE TANYA CLAVE BEBETO 5:26AM: SE COMIENZA A YEN VENTILACION MANUALES A PACIENTE 5:27AM: SE ADMINITRA 1MG DE ADRENALINA POR ORDEN DEL DR. [place]. 5:39AM: DR. [place] LOGRA ENTUBAR PACIENTE CON TUBO 6.5 5:40AM: SE COLOCA DRIP DE DOPAMINA 400MG/250ML @ 16 ML/HR. 5:42AM: PACIENTE CON VITALES EN 104HR, 100 SPO2. 96/69 mmHg. LA MISMA FUE CANALIZA X2 20 EN LA MANO IZQUIERDA Y # 24 ANTEBRAZO DERECHA Y # 20 BRAZO DERECHO PATENTE. SE COLOCA 0.9NSS @ 100 ML/HR Y SE ADMINITRA MEDICAMENTOS MAIDA ORDEN MEDICA. SE INSERTA STOREY DRENANDO A GRAVEDAD ORINA AMARILLA OSCURA SIN HEMATURIA. SE RESTRINGE PACIENTE X2 POR PREVENCION COMPLETA. SE TOMARON MUESTRAS DE LABORATORIO Y SE ENVIAN.
--- NOTE | 2023-05-28 07:08 | NUR ---
5:25AM: MIENTRAS SE INTENTABA CANALIZAR PACIENTE LA MISMA NO RESPONDE A ESTIMULOS VERBALES Y EMPEZA A GASPING. SE ATNYA CLAVE BEBETO Y SE EMPIEZA A YEN VEENTILACIONES MANUALES. 5:27AM: SE ADMINITRA 1 MG DE ADRENALINA POR ORDEN DEL DR. [place]. 5:39AM: DR. [place] LOGRA ENTUBAR PACIENTE CON UN TUBO 6.5 EN 23 CM. 5:40AM: SE COLOCA DRIP DE DOPAMINA 400MG/250ML @ 16 ML/HR POR IV PUMP. 5:42AM: PACIENTE CON VITALES EN 104HR, 100 SPO2 Y 96/69 mmHg. 5:45AM: PERSONAL DE TERAPIA RESPIRATORIO CONECTA PACIENTE A VENTILADOR MECANICO CON LOS SIGUIENTES PARAMETROS. 400 VTML, A/C, RR18, FIO2 100%. 5:45AM-6:15AM: SE CAMBIA SABANAS Y SE LIMPIA PACIENTE. SE CANALIZO PACIENTE EN MANO IZQUIERDA X2 # 22 Y BRAZO DERECHO # 20 Y ANTEBRADO DERECHO # 24 SE COLOCA 0.9NSS @ 100 ML/HR Y SE ADMINITRA MEDICAMENTOS MAIDA ORDEN MEDICA. SE AQUILINO MUESTRAS DE LABORATORIO Y SE ENVIAN. SE COLOCA STOREY F16 DRENANDO ORINA AMARILLA SIN HEMATURIA Y SE ANSHUL U/A Y U/C. SE COLOCA RESTRINGIDA EN AMBAS XIOMARA. SE REALIZA EKG Y SE PRESENTA AL DR. [place]. PLACA PORTABLE REALIZADA POR PERSONAL DE RADIOGRAFIA. DR. [place] NAVEEN CONSULTADA PACIENTE CON LA DR. LATOYA OCAMPO INTERNISTA DEL PACIENTE.
== END 2023-06-02 20:50 | disposition expired | DRG 870 ==
LOC: ER 05:03 → ICU-2 09:55 → ICU 05-29 21:35
PROVIDERS: General Practice; Internal Medicine; ADMIT Internal Medicine; ATTEND Internal Medicine
PROC: 5A1955Z Respiratory Ventilation, Greater than 96 Consecutive Hours (ICD-10-PCS; principal; 2023-05-28)
PROC: 0BH18EZ Insertion of Endotracheal Airway into Trachea, Via Natural or Artificial Opening Endoscopic (ICD-10-PCS; 2023-05-28)
PROC: 02HV33Z Insertion of Infusion Device into Superior Vena Cava, Percutaneous Approach (ICD-10-PCS; 2023-05-29)
PROC: B24BYZZ Ultrasonography of Heart with Aorta using Other Contrast (ICD-10-PCS; 2023-05-29)
DX: A41.59 Other Gram-negative sepsis (principal); J96.01 Acute respiratory failure with hypoxia; J69.0 Pneumonitis due to inhalation of food and vomit; R65.21 Severe sepsis with septic shock; G92.8 Other toxic encephalopathy; I13.0 Hypertensive heart and chronic kidney disease with heart failure and stage 1 through stage 4 chronic kidney disease, or unspecified chronic kidney disease; E87.21 Acute metabolic acidosis; N39.0 Urinary tract infection, site not specified; G40.89 Other seizures; N17.9 Acute kidney failure, unspecified; A41.51 Sepsis due to Escherichia coli [E. coli]; B96.1 Klebsiella pneumoniae [K. pneumoniae] as the cause of diseases classified elsewhere; R57.0 Cardiogenic shock; I50.9 Heart failure, unspecified; N18.9 Chronic kidney disease, unspecified; K76.9 Liver disease, unspecified; Z95.810 Presence of automatic (implantable) cardiac defibrillator; E11.9 Type 2 diabetes mellitus without complications; E03.9 Hypothyroidism, unspecified